=== PATIENT | female | born 1995 | race African-American/Black ===

== ENCOUNTER 2021-04-01 09:08 | Emergency (ER) | payer BC ==
[~2021-04-01] VITALS: Ht 167.6 cm; Wt 116.8 kg
--- NOTE | 2021-04-01 09:36 | PHYS DOC ---
Past History Past Medical History: Alcoholism, Anxiety, Depression, Hypertension Past Surgical History: No Surgical History Alcohol Use: Heavy Additional Alcohol Information: drinks one bottle palmason daily Adult General Chief Complaint Chief Complaint: ABDOMINAL PAIN HPI HPI Patient is a 25-year-old presenting for abdominal pain. Onset was this morning shortly after waking up. No known inciting event or trauma. Nothing known makes better or worse. Patient reports mainly epigastric pain that is generalized in nature without radiation, states it is gnawing and making her nauseous. She has suffered several episodes of nonbloody nonbilious emesis. Admits history of alcoholism, drinks at least a pint of hard liquor daily with last drink yesterday evening. Also reports she smokes marijuana, denies any change in type/strain or increased frequency. Has history of abdominal pain like this in the past but is never been diagnosed with pancreatitis or been ho spitalized. No fever, hemoptysis, history of abdominal surgeries Review of Systems Review of Systems Fourteen body systems of review of systems have been reviewed. See HPI for pertinent positives and negative responses, other lopez all other systems are negative, non-pertinent or non-contributory Allergies Allergies Allergies Coded Allergies Type Severity Reaction Last Updated Verified No Known Drug Allergies 04/01/21 No Physical Exam Physical Exam Constitutional: Well developed, well nourished, diaphoretic and appears in acute pain HENT: Normocephalic, atraumatic, diaphoretic, bilateral external ears normal, oropharynx moist, no oral exudates, nose normal. Eyes: PERRLA, EOMI, conjunctiva normal, no discharge. Neck: Normal range of motion, no tenderness, supple, no stridor. Cardiovascular: Heart rate regular, sinus rhythm, no murmurs rubs or gallops Lungs & Thorax: Bilateral breath sounds clear to auscultation Abdomen: Bowel sounds normal, soft, epigastric tenderness, no masses, no pulsatile masses. Nonsurgical abdomen, no peritoneal signs Skin: Warm, dry, no erythema, no rash. Back: No tenderness, no CVA tenderness. Extremities: No tenderness, no cyanosis, no clubbing, ROM intact, no edema. Neurologic: Alert and oriented X 3, grossly normal motor & sensory function, no focal deficits noted. Psychologic: Anxious affect, judgement normal, mood normal. Current Patient Data Vital Signs Vital Signs Date Time Temp Pulse Resp B/P (MAP) Pulse Ox O2 Delivery O2 Flow Rate FiO2 04/01/21 09:10 97.3 56 24 148/94 (112) 100 Room Air Lab Results Laboratory Tests Test 04/01/21 09:55 White Blood Count 17.3 x10^3/uL Red Blood Count 5.60 x10^6/uL Hemoglobin 14.9 g/dL Hematocrit 46.3 % Mean Corpuscular Volume 83 fL Mean Corpuscular Hemoglobin 27 pg Mean Corpuscular Hemoglobin Concent 32 g/dL Red Cell Distribution Width 14.9 % Platelet Count 297 x10^3/uL Neutrophils (%) (Auto) 71 % Lymphocytes (%) (Auto) 23 % Monocytes (%) (Auto) 4 % Eosinophils (%) (Auto) 1 % Basophils (%) (Auto) 1 % Neutrophils # (Auto) 12.3 x10^3uL Lymphocytes # (Auto) 3.9 x10^3/uL Monocytes # (Auto) 0.7 x10^3/uL Eosinophils # (Auto) 0.2 x10^3/uL Basophils # (Auto) 0.1 x10^3/uL Platelet Estimate Pending Sodium Level 141 mmol/L Potassium Level 3.5 mmol/L Chloride Level 104 mmol/L Carbon Dioxide Level 22 mmol/L Anion Gap 15 Blood Urea Nitrogen 10 mg/dL Creatinine 0.8 mg/dL Estimated GFR (Cockcroft-Gault) 105.8 BUN/Creatinine Ratio 13 Glucose Level 128 mg/dL Calcium Level 9.4 mg/dL Total Bilirubin 0.4 mg/dL Aspartate Amino Transf (AST/SGOT) 28 U/L Alanine Aminotransferase (ALT/SGPT) 43 U/L Alkaline Phosphatase 75 U/L Total Protein 8.3 g/dL Albumin 3.8 g/dL Albumin/Globulin Ratio 0.8 Lipase 59 U/L Current Medications Medications (Trade) Dose Ordered Sig/Gordon Route PRN Reason Start Time Stop Time Status Last Admin Dose Admin Sodium Chloride 1,000 ml @ 1,000 mls/hr Q1H IV 04/01/21 09:45 04/01/21 10:44 DC 04/01/21 09:45 Fentanyl Citrate (Fentanyl 2ml Vial) 75 mcg 1X ONCE IVP 04/01/21 09:45 04/01/21 09:46 DC 04/01/21 09:50 Lorazepam (Ativan Inj) 0.5 mg 1X ONCE IVP 04/01/21 09:45 04/01/21 09:46 DC 04/01/21 09:47 Iohexol (Omnipaque 300 Mg/ml) 75 ml 1X ONCE IV 04/01/21 09:45 04/01/21 09:46 DC 04/01/21 10:01 EKG EKG EKG ordered and interpreted by myself at 1026 hrs. as sinus rhythm at 52 bpm, unremarkable intervals, no axis deviation, no acute ischemic findings, no STEMI Radiology/Procedures Radiology/Procedures INDICATION: Reason: etoh abuse, epigastric pain / Spl. Instructions: / History: . COMPARISON: None. TECHNIQUE: Axial CT images obtained through the abdomen and pelvis with contrast. One or more of the following individualized dose reduction techniques were utilized for this examination: 1. Automated exposure control; 2. Adjustment of the mA and/or kV according to patient size; 3. Use of iterative reconstruction technique. FINDINGS: Abdominal aorta is not aneurysmal. No intrahepatic bile duct dilation. Liver is prominent in size. Gallbladder is d istended at time of exam. No peripancreatic fluid collection. Spleen is unremarkable. No hydronephrosis. Urinary bladder is partially distended. Fat-containing umbilical hernia. Uterus is visualized. No periappendiceal inflammatory changes. No dilated loops of bowel to suggest obstruction. Degenerative changes of the spine. This includes at L4-5 where there is a disc protrusion associated central canal stenosis. IMPRESSION: * No evidence of bowel obstruction or appendicitis. * No hydronephrosis. Electronically signed by: Angel Pang MD (04/01/2021 10:20 AM) [id number] Heart Score C/O Chest Pain: No HEART Score for Chest Pain: HEART Score for Chest Pain Response (Comments) Value History Slighlty/Non-Suspicious 0 ECG Normal 0 Age < 45 0 Risk Factors 1 or 2 Risk Factors 1 Total 1 Risk Factors: Risk Factors: DM, Current or recent (<one month) smoker, HTN, HLP, family history of CAD, obesity. Risk Scores: Risk Factors: DM, Current or recent (<one month) smoker, HTN, HLP, family hi story of CAD, obesity. Course & Med Decision Making Course & Med Decision Making Discussed with the patient all findings and diagnostic testing. I discussed most likely diagnosis of abdominal pain unspecified. Discussed pain could be due to alcohol dependence and sequelae from drinking more than usual from night prior, could be gastritis. Also disclosed this could be cannabinoid hyperemesis syndrome. Also disclosed this might be an acute presentation more concerning pathology. Patient responded to ER intervention, was asymptomatic after IV fluids, IV pain control and low-dose benzodiazepine. I reviewed need for further diagnostic work-up and discussed role of potential hospitalization; however, joint decision made given complete improvement in symptoms for discharge home with close PCP follow-up. As such, I stressed need for close outpatient follow-up to review today's ER visit. Strict return precautions were also discussed at length with good understanding by patient. Patient voiced understanding and agreement with the plan. Patient knows to come back for repeat evaluation if concerning signs or symptoms present prior to outpatient follow- up. Hemodynamically stable, ambulatory and well-appearing at time of disposition. Dragon Disclaimer Dragon Disclaimer This electronic medical record was generated, in whole or in part, using a voice recognition dictation system. Departure Departure: Impression: Primary Impression: Abdominal pain Disposition: HOME / SELF CARE / HOMELESS Condition: IMPROVED Referrals: BI EDGE MD (PCP) Patient Instructions: Abdominal Pain Additional Instructions: You have been evaluated in the Emergency Department today for abdominal pain. Your evaluation was not suggestive of any emergent condition requiring medical intervention at this time. However, some abdominal problems make take more time to appear. Therefore, it is important for you to watch for any new symptoms or worsening of your current condition. As discussed, please contact your primary care physician immediately after your departure to review ER visit today. In addition, it would be beneficial to discuss safely cutting back and hopefully stopping your alcohol and marijuana use Return to the Emergency Department if you experience worsening pain, persistent fevers greater than 100.4, recurrent vomiting, blood in vomit, blood in stool, dark tarry stool, chest pain, difficulty breathing, or any other concerning symptoms. NAKIA YARBROUGH DO Apr 01, 2021 09:36
[2021-04-01] MEDS ORDERED: IOHEXOL 300 MG/ML 75 ML VIAL. IV ONE (09:45)
[2021-04-01] MEDS ORDERED: IV NORMAL SALINE 1,000ML 1,000 ML IV SCH (09:45)
[2021-04-01 10:15] LABS: BASO # 0.1 x10^3/uL (0.0-0.2); BASO % 1 % (0-3); EOS # 0.2 x10^3/uL (0.0-0.7); EOS % 1 % (0-3); HEMATOCRIT 46.3 % (36.0-47.0); HEMOGLOBIN 14.9 g/dL (12.0-15.5); LYMPH # 3.9 x10^3/uL (1.0-4.8); LYMPH % 23 % (24-48); MEAN CORPUSCULAR HEMOGLOBIN 27 pg (25-35); MEAN CORPUSCULAR HGB CONC 32 g/dL (31-37); MEAN CORPUSCULAR VOLUME 83 fL (79-100); MONO # 0.7 x10^3/uL (0.0-1.1); MONO % 4 % (0-9); NEUT # 12.3 x10^3uL (1.8-7.7); NEUT % 71 % (31-73); PLATELET COUNT 297 x10^3/uL (140-400); RED CELL DISTRIBUTION WIDTH 14.9 % (11.5-14.5); WHITE BLOOD COUNT 17.3 x10^3/uL (4.0-11.0)
--- NOTE | 2021-04-01 10:23 | RAD ---
INDICATION: Reason: etoh abuse, epigastric pain / Spl. Instructions: / History: . COMPARISON: None. TECHNIQUE: Axial CT images obtained through the abdomen and pelvis with contrast. One or more of the following individualized dose reduction techniques were utilized for this examinat ion: 1. Automated exposure control; 2. Adjustment of the mA and/or kV according to patient size; 3 . Use of iterative reconstruction technique. FINDINGS: Abdominal aorta is not aneurysmal. No intrahepatic bile duct dilation. Liver is prominent in size. Gallbladder is distended at time of e xam. No peripancreatic fluid collection. Spleen is unremarkable. No hydronephrosis. Urinary bladder is partially distended. Fat-containing umbilical hernia. Uterus is visualized. No periappendiceal inflammatory changes. No dilated loops of bowel to suggest obstruction. Degenerative changes of the spine. This includes at L4-5 where there is a disc protrusion associated central canal stenosis. IMPRESSION: * No evidence of bowel obstruction or appendicitis. * No hydronephrosis. Electronically signed by: Angel Pang MD (04/01/2021 10:20 AM) [id number]
[2021-04-01 10:29] LABS: CALCIUM 9.4 mg/dL (8.5-10.1); CREATININE 0.8 mg/dL (0.6-1.0); GFR 105.8; POTASSIUM 3.5 mmol/L (3.5-5.1)
[2021-04-01 10:34] LABS: ALBUMIN 3.8 g/dL (3.4-5.0); ALBUMIN/GLOBULIN RATIO 0.8 (1.0-1.7); TOTAL BILIRUBIN 0.4 mg/dL (0.2-1.0); TOTAL PROTEIN 8.3 g/dL (6.4-8.2)
--- NOTE | 2021-04-01 11:04 | EKG ---
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
[2021-04-01 11:50] LABS: U PREG PATIENT NEGATIVE (NEG)
[2021-04-01 11:54] VITALS: BP 99/47
[2021-04-01 12:01] LABS: AMPHETAMINE/METHAMPHETAMINE NEG (NEG); BARBITURATES NEG (NEG); BENZODIAZEPINES NEG (NEG); CANNABINOIDS POS (NEG); COCAINE NEG (NEG); METHADONE NEG (NEG); OPIATES NEG (NEG); PHENCYCLIDINE NEG (NEG)
[2021-04-01 12:05] LABS: BACTERIA,URINE FEW /HPF (0-FEW); BILIRUBIN,URINE NEG (NEG); CLARITY,URINE HAZY; COLOR,URINE YELLOW; GLUCOSE,URINE NEG (NEG); NITRITE,URINE NEG (NEG); SQUAMOUS EPITHELIAL CELL,UR MANY /LPF; UROBILINOGEN,URINE 0.2 mg/dL (0.2 mg/dL)
[2021-04-01 13:49] LABS: % ATYL 6 % (0-0); % EOS 1 % (0-5); % LYMPHS 21 % (24-48); % MONOS 3 % (0-10); % SEGS 69 % (35-66); PLT ESTIMATE ADEQUATE (ADEQUATE)
== END 2021-04-01 11:54 | disposition home or self-care (01) ==
LOC: ER 09:08
DX: R10.13 Epigastric pain (principal); I10 Essential (primary) hypertension; F12.10 Cannabis abuse, uncomplicated; F17.210 Nicotine dependence, cigarettes, uncomplicated
CPT/HCPCS: 36415; 74177; 80053; 80307; 81001; 81025; 83690; 85007; 85025; 87086; 93005; 96361; 96374; 96375; 99285; J2060; J3010; J7030; Q9967; 87077

== ENCOUNTER 2021-11-03 23:29 | Emergency (ER) | payer BC ==
[~2021-11-03] VITALS: Ht 167.6 cm; Wt 116.8 kg
[2021-11-03 23:40] VITALS: BP 140/92
--- NOTE | 2021-11-03 23:48 | PHYS DOC ---
Past History Past Medical History: Alcoholism, Anxiety, Constipation, Depression, Hypertension Past Surgical History: No Surgical History Alcohol Use: Heavy General Adult EDM: Chief Complaint: MEDICATION REFILL HPI: HPI: ".. I ve got a fever... out of my Lexapro .. the last three days.. and under stress...." Patient is a 26 year old female who presents with request for med refill and a dose of Lexapro tonight. Patient normally on Lexapro 20 mg every night. Patient has had flu vaccination as well as COVID vaccination. Patient concerned because she has a fever. Did check earlier in the week and her rapid COVID was negative. No recent travel. No specific ill contacts. Does have a history of depression and anxiety.. Patient denies any current suicidal ideation or homicidal ideation. Has no formed plan for suicide. Patient does have a primary care physician as well as counselor who refills her medications. Patient complains of generalized myalgia, arthralgia and malaise. Pt. declines psychiatric assessment team evaluation at this time. Patient is accompanied with her mother. Review of Systems: Review of Systems: Constitutional: Complains of fever or chills Eyes: Denies change in visual acuity HENT: Denies nasal congestion or sore throat Respiratory: Complains of a nonproductive cough Cardiovascular: Denies chest pain or edema GI: Denies abdominal pain, nausea, vomiting, bloody stools or diarrhea : Denies dysuria Musculoskeletal: Complains of myalgia and arthralgia and malaise Integument: Denies rash Neurologic: Denies headache, focal weakness or sensory changes Endocrine: Denies polyuria or polydipsia Lymphatic: Denies swollen glands Psychiatric: Denies depression or anxiety Family History: Family History: Noncontributory to presentation Current Medications: Current Meds: See nursing for home meds Allergies: Allergies: Allergies Coded Allergies Type Severity Reaction Last Updated Verified No Known Drug Allergies 04/01/21 No Physical Exam: PE: Constitutional: Well developed, well nourished, moderate acute distress, non- toxic appearance. [] HENT: Normocephalic, atraumatic, bilateral external ears normal, oropharynx moist, no oral exudates, nose swollen turbinates clear rhinorrhea. Postnasal drainage. Eyes: PERRLA, EOMI, conjunctiva normal, no discharge. [] Neck: Normal range of motion, no tenderness, supple, no stridor. [] Cardiovascular:Heart rate regular rhythm, no murmur [] Lungs & Thorax: Bilateral breath sounds equal at apex with a few scattered wheezes on Auscultation [] Abdomen: Bowel sounds normal, soft, no tenderness, no masses, no pulsatile masses. Obese Skin: Warm, dry, no erythema, no rash. [] Back: No tenderness, no CVA tenderness. [] Extremities: No tenderness, no cyanosis, no clubbing, ROM intact, no edema. [] Neurologic: Alert and oriented X 3, normal motor function, normal sensory function, no focal deficits noted. [] Psychologic: Affect anxious, angry,, judgement-appears to have good insight,, mood complaints of depression but no suicidal ideation currently. EKG: EKG: [] Radiology/Procedures: Radiology/Procedures: [] Heart Score: C/O Chest Pain: N/A Risk Factors: Risk Factors: DM, Current or recent (<one month) smoker, HTN, HLP, family history of CAD, obesity. Risk Scores: Score 0 - 3: 2.5% MACE over next 6 weeks - Discharge Home Score 4 - 6: 20.3% MACE over next 6 weeks - Admit for Clinical Observation Score 7 - 10: 72.7% MACE over next 6 weeks - Early Invasive Strategies Course & Med Decision Making: Course & Med Decision Making Pertinent Labs and Imaging studies reviewed. (See chart for details) Patient push clear fluids. Patient take her Lexapro 20 mg daily. To call her physician in the morning. Currently this is not a drug we have in stock at [facility]. Patient informed of her COVID and influenza screen. Mother still practices if she has COVID and self isolate. Return if any concerns. Push fluids. Clear fluid diet. Tylenol and ibuprofen for discomfort. Return if any concerns. Viral isolation-and must wear mask covering nose and mouth and her interactions with others. Must self isolate for the next 5 days. To retest after 5 days if needed for return to work. Currently rapid influenza and COVID results are negative Impression: 1. Depression-with no current suicidal ideation or suicidal plan 2. Viral syndrome [] Dragon Disclaimer: Dragon Disclaimer: This electronic medical record was generated, in whole or in part, using a voice recognition dictation system. Departure Departure: Referrals: BI EDGE MD (PCP) Octavia Disclaimer This chart was dictated in whole or in part using Voice Recognition software in a busy, high-work load, and often noisy Emergency Department environment. It may contain unintended and wholly unrecognized errors or omissions. Dragon Disclaimer This chart was dictated in whole or in part using Voice Recognition software in a busy, high-work load, and often noisy Emergency Department environment. It may contain unintended and wholly unrecognized errors or omissions. BOONE NORIEGA MD Nov 03, 2021 23:48
[2021-11-04] MEDS ORDERED: ACETAMINOPHEN 500 MG TABLET PO ONE (01:00)
[2021-11-04 01:47] LABS: INFLUENZA A PATIENT NEGATIVE (NEGATIVE); INFLUENZA B PATIENT NEGATIVE (NEGATIVE)
[2021-11-04] MEDS ORDERED: ONDANSETRON ODT 4 MG TAB.RAPDIS PO ONE (02:00)
== END 2021-11-04 03:00 | disposition home or self-care (01) ==
LOC: ER 23:29
DX: F32.9 Major depressive disorder, single episode, unspecified (principal); Z76.0 Encounter for issue of repeat prescription; B34.9 Viral infection, unspecified; I10 Essential (primary) hypertension; Z20.822 Contact with and (suspected) exposure to COVID-19
CPT/HCPCS: 87428; 99283; Q0162

== ENCOUNTER 2022-02-10 19:19 | Emergency (ER) | payer BC ==
[~2022-02-10] VITALS: Ht 167.6 cm; Wt 116.6 kg
--- NOTE | 2022-02-10 20:02 | PHYS DOC ---
Past History Past Medical History: Alcoholism, Anxiety, Constipation, Depression, Hypertension Additional Past Medical Histor: Hip (LORRI FERRARI APRN) Past Medical History: Alcoholism (BOONE JAMA MD) Past Surgical History: No Surgical History (LORRI FERRARI APRN) Alcohol Use: Heavy (LORRI FERRARI APRN) General Adult EDM: Chief Complaint: SUICIDAL IDEATION HPI: HPI: Patient is a 26-year-old female who presents to the emergency department for suicidal ideation. When asked what her plan is patient states "everything". Her family member at bedside states that she had talked about setting the house on fire. Patient reports she follows up with therapist and saw them today. She has anxiety and depression and was prescribed Lexapro but is not taking that as directed. She denies homicidal ideation but family member at bedside reports that she is having homicidal thoughts. (LORRI FERRARI APRN) Review of Systems: Review of Systems: Constitutional: Denies fever or chills Eyes: Denies change in visual acuity HENT: Denies nasal congestion or sore throat Respiratory: Denies cough or shortness of breath Cardiovascular: Denies chest pain or edema GI: Denies abdominal pain, nausea, vomiting, bloody stools or diarrhea : Denies dysuria Musculoskeletal: Denies back pain or joint pain Integument: Denies rash Neurologic: Denies headache, focal weakness or sensory changes Endocrine: Denies polyuria or polydipsia Lymphatic: Denies swollen glands Psychiatric: See HPI (LORRI FERRARI APRN) Allergies: Allergies: Allergies Coded Allergies Type Severity Reaction Last Updated Verified No Known Drug Allergies 04/01/21 No (LORRI FERRARI APRN) Physical Exam: PE: Constitutional: Well developed, well nourished, no acute distress, non-toxic appearance. [] HENT: Normocephalic, atraumatic, bilateral external ears normal, oropharynx moist, no oral exudates, nose normal. [] Eyes: PERRL, EOMI, conjunctiva normal, no discharge. [] Neck: Normal range of motion, no stridor Cardiovascular: Normal peripheral perfusion Lungs & Thorax: Normal work of breathing, no tachypnea Abdomen: Soft and obese Skin: Warm, dry, no erythema, no rash. [] Back: No tenderness, normal range of motion Extremities: No tenderness, no cyanosis, no clubbing, ROM intact, no edema. [] Neurologic: Alert and oriented X 3, normal motor function, normal sensory function, no focal deficits noted. [] Psychologic: Affect normal, judgement normal, mood normal. [] (LORRI FERRARI APRN) Current Patient Data: Labs: Laboratory Tests Test 02/10/22 19:42 02/10/22 19:47 SARS-CoV-2 Antigen (Rapid) Negative White Blood Count 13.2 x10^3/uL Red Blood Count 5.11 x10^6/uL Hemoglobin 14.1 g/dL Hematocrit 43.5 % Mean Corpuscular Volume 85 fL Mean Corpuscular Hemoglobin 28 pg Mean Corpuscular Hemoglobin Concent 32 g/dL Red Cell Distribution Width 14.3 % Platelet Count 280 x10^3/uL Neutrophils (%) (Auto) 70 % Lymphocytes (%) (Auto) 22 % Monocytes (%) (Auto) 6 % Eosinophils (%) (Auto) 1 % Basophils (%) (Auto) 1 % Neutrophils # (Auto) 9.2 x10^3uL Lymphocytes # (Auto) 2.9 x10^3/uL Monocytes # (Auto) 0.8 x10^3/uL Eosinophils # (Auto) 0.1 x10^3/uL Basophils # (Auto) 0.1 x10^3/uL Urine Collection Type Clean catch Urine Color Yellow Urine Clarity Clear Urine pH 6.0 Urine Specific Philipp 1.015 Urine Protein Neg Urine Glucose (UA) Neg mg/dL Urine Ketones (Stick) Neg mg/dL Urine Blood Mod Urine Nitrite Neg Urine Bilirubin Neg Urine Urobilinogen Dipstick 0.2 mg/dL Urine Leukocyte Esterase Neg Urine RBC 3-5 /HPF Urine WBC 0 /HPF Urine Squamous Epithelial Cells Many /LPF Urine Bacteria 0 /HPF Sodium Level 137 mmol/L Potassium Level 4.0 mmol/L Chloride Level 102 mmol/L Carbon Dioxide Level 25 mmol/L Anion Gap 10 Blood Urea Nitrogen 8 mg/dL Creatinine 0.7 mg/dL Estimated GFR (Cockcroft-Gault) 122.4 BUN/Creatinine Ratio 11 Glucose Level 89 mg/dL Calcium Level 9.1 mg/dL Total Bilirubin 0.3 mg/dL Aspartate Amino Transf (AST/SGOT) 35 U/L Alanine Aminotransferase (ALT/SGPT) 46 U/L Alkaline Phosphatase 90 U/L Total Protein 8.3 g/dL Albumin 3.5 g/dL Albumin/Globulin Ratio 0.7 Urine Opiates Screen Neg Urine Methadone Screen Neg Urine Barbiturates Neg Urine Phencyclidine Screen Neg Urine Amphetamine/Methamphetamine Neg Urine Benzodiazepines Screen Neg Urine Cocaine Screen Neg Urine Cannabinoids Screen Pos Urine Ethyl Alcohol Pos Vital Signs: Vital Signs Date Time Temp Pulse Resp B/P (MAP) Pulse Ox O2 Delivery O2 Flow Rate FiO2 02/10/22 19:30 98.8 90 16 149/92 (111) 97 Room Air (LORRI FERRARI APRN) EKG: EKG: [] (LORRI FERRARI APRN) Radiology/Procedures: Radiology/Procedures: [] (LORRI FERRARI APRN) Heart Score: C/O Chest Pain: N/A Risk Factors: Risk Factors: DM, Current or recent (<one month) smoker, HTN, HLP, family history of CAD, obesity. Risk Scores: Score 0 - 3: 2.5% MACE over next 6 weeks - Discharge Home Score 4 - 6: 20.3% MACE over next 6 weeks - Admit for Clinical Observation Score 7 - 10: 72.7% MACE over next 6 weeks - Early Invasive Strategies (LORRI FERRARI APRN) Course & Med Decision Making: Course & Med Decision Making Pertinent Labs and Imaging studies reviewed. (See chart for details) [] Patient resents to the emergency department for suicidal ideation. Suicide precautions initiated. Blood work and urinalysis performed to medically clear patient. Patient be evaluated by member the psychiatric assessment team. 2151: Patient's noted to have mild leukocytosis which is nonspecific, CMP unremarkable. Negative rapid COVID test. Urinalysis does not show any infection. UDS is positive for marijuana and alcohol. Ethanol, Tylenol and salicylate level was ordered for patient. Is pending at this time. Patient to be evaluated by member the psychiatric assessment team and this is pending at this time. I discussed these findings and patient's case with Dr. Jama who will assume patient care at this time due to shift change. (LORRI FERRARI APRN) Course & Med Decision Making See Ata chart prior shift change for details. See PAT assessment. Pt. accepted at [facility]-- Dr. Causey, [place] Impression: 1. Hx. of Alcohol Abuse- 23 current level 2. Depression 3. Anxiety 4. Suicidal Ideation (BOONE JAMA MD) Dragon Disclaimer: Dragon Disclaimer: This electronic medical record was generated, in whole or in part, using a voice recognition dictation system. (LORRI FERRARI APRN) Departure Departure: Impression: Primary Impression: Suicidal ideation Referrals: BI EDGE MD (PCP) Dragon Disclaimer This chart was dictated in whole or in part using Voice Recognition software in a busy, high-work load, and often noisy Emergency Department environment. It may contain unintended and wholly unrecognized errors or omissions. (BOONE JAMA MD) LORRI FERRARI APRN Feb 10, 2022 20:02 BOONE JAMA MD Feb 10, 2022 22:03
[2022-02-10 20:05] LABS: BASO # 0.1 x10^3/uL (0.0-0.2); BASO % 1 % (0-3); EOS # 0.1 x10^3/uL (0.0-0.7); EOS % 1 % (0-3); HEMATOCRIT 43.5 % (36.0-47.0); HEMOGLOBIN 14.1 g/dL (12.0-15.5); LYMPH # 2.9 x10^3/uL (1.0-4.8); LYMPH % 22 % (24-48); MEAN CORPUSCULAR HEMOGLOBIN 28 pg (25-35); MEAN CORPUSCULAR HGB CONC 32 g/dL (31-37); MEAN CORPUSCULAR VOLUME 85 fL (79-100); MONO # 0.8 x10^3/uL (0.0-1.1); MONO % 6 % (0-9); NEUT # 9.2 x10^3uL (1.8-7.7); NEUT % 70 % (31-73); PLATELET COUNT 280 x10^3/uL (140-400); RED BLOOD COUNT 5.11 x10^6/uL (3.50-5.40); RED CELL DISTRIBUTION WIDTH 14.3 % (11.5-14.5); WHITE BLOOD COUNT 13.2 x10^3/uL (4.0-11.0)
[2022-02-10 20:13] LABS: CALCIUM 9.1 mg/dL (8.5-10.1); CREATININE 0.7 mg/dL (0.6-1.0); GFR 122.4
[2022-02-10 20:19] LABS: ALBUMIN 3.5 g/dL (3.4-5.0); ALBUMIN/GLOBULIN RATIO 0.7 (1.0-1.7); TOTAL BILIRUBIN 0.3 mg/dL (0.2-1.0); TOTAL PROTEIN 8.3 g/dL (6.4-8.2)
[2022-02-10 20:30] LABS: BACTERIA,URINE 0 /HPF (0-FEW); CLARITY,URINE CLEAR; COLOR,URINE YELLOW; GLUCOSE,URINE NEG (NEG); NITRITE,URINE NEG (NEG); SQUAMOUS EPITHELIAL CELL,UR MANY /LPF; UROBILINOGEN,URINE 0.2 mg/dL (0.2 mg/dL); WBC,URINE 0 /HPF (0-4)
[2022-02-10 20:34] LABS: BARBITURATES NEG (NEG); BENZODIAZEPINES NEG (NEG); CANNABINOIDS POS (NEG); COCAINE NEG (NEG); METHADONE NEG (NEG); OPIATES NEG (NEG); PHENCYCLIDINE NEG (NEG)
[2022-02-10 20:36] LABS: AMPHETAMINE/METHAMPHETAMINE NEG (NEG)
[2022-02-10 21:59] LABS: ACETAMIN < 2.0 mcg/mL (10-30); SALIC 2.3 mg/dL (2.8-20.0)
[2022-02-10] MEDS ORDERED: MVI, ADULT NO.4 WITH VIT K 10 ML, FOLIC ACID INJ 1 MG, THIAMINE INJ 100 MG in IV RINGER... IV ONE (22:45)
[2022-02-10 23:24] VITALS: BP 142/94
== END 2022-02-11 00:05 ==
LOC: ER 19:19
DX: F32.9 Major depressive disorder, single episode, unspecified (principal); F41.9 Anxiety disorder, unspecified; R45.851 Suicidal ideations; F10.20 Alcohol dependence, uncomplicated; I10 Essential (primary) hypertension; Z20.822 Contact with and (suspected) exposure to COVID-19; Y90.1 Blood alcohol level of 20-39 mg/100 ml
CPT/HCPCS: 36415; 80053; 80307; 80329; 81001; 85025; 87426; 96365; 99285; C9803; G0480; J7120; U0003

== ENCOUNTER 2022-03-05 21:02 | Emergency (ER) | payer BC ==
[~2022-03-05] VITALS: Ht 167.6 cm; Wt 115.5 kg
[~2022-03-05 21:02] MED LIST: IV NORMAL SALINE 1,000ML 1,000 ML IV ONE
--- NOTE | 2022-03-05 21:19 | PHYS DOC ---
Past History Past Medical History: Alcoholism Additional Past Medical Histor: Hip (ANN MARIE FRIAS APRN) Past Surgical History: No Surgical History (ANN MARIE FRIAS APRN) Alcohol Use: Heavy (ANN MARIE FRIAS APRN) General Adult HPI: HPI: Patient is a 26-year-old female presents with suicidal ideation. Patient states that her girlfriend broke up with her last week and she has been depressed. Patient states that she does have a plan. Patient discussed taking pills. Patient is currently transitioning from female to male and having some anxiety and depression. History of alcoholism. (ANN MARIE FRIAS APRN) Review of Systems: Review of Systems: ROS At least 10 ROS systems have been reviewed and are negative except as documented in the HPI. General: Negative except as outlined in HPI above. Skin: Negative except as outlined in HPI above. HEENT: Negative except as outlined in HPI above. Neck: Negative except as outlined in HPI above. Respiratory: Negative except as outlined in HPI above.. Cardiovascular: Negative except as outlined in HPI above. Abdomen: Negative except as outlined in HPI above. : Negative except as outlined in HPI above. Back/MSK: Negative except as outlined in HPI above. Neuro: Negative except as outlined in HPI above. Psych: Negative except as outlined in HPI above. (ANN MARIE FRIAS APRN) Allergies: Allergies: Allergies Coded Allergies Type Severity Reaction Last Updated Verified No Known Drug Allergies 04/01/21 No (ANN MARIE FRIAS APRN) Physical Exam: PE: Constitutional: Well developed, well nourished, no acute distress, tearful, depressed HENT: Normocephalic, atraumatic, bilateral external ears normal, oropharynx moist, no oral exudates, nose normal. [] Eyes: PERRLA, EOMI, conjunctiva normal, no discharge. [] Neck: Normal range of motion, no tenderness, supple, no stridor. [] Cardiovascular:Heart rate regular rhythm, no murmur [] Lungs & Thorax: Bilateral breath sounds clear to auscultation [] Abdomen: Bowel sounds normal, soft, no tenderness, no masses, no pulsatile masses. [] Skin: Warm, dry, no erythema, no rash. [] Back: No tenderness, no CVA tenderness. [] Extremities: No tenderness, no cyanosis, no clubbing, ROM intact, no edema. [] Neurologic: Alert and oriented X 3, normal motor function, normal sensory function, no focal deficits noted. [] Psychologic: Flat affect, abnormal judgment, anxious mood (ANN MARIE FRIAS APRN) EKG: EKG: Sinus rhythm. Heart rate [address] elevation or depression. [] (ANN MARIE FRIAS APRN) Radiology/Procedures: Radiology/Procedures: [] (ANN MARIE FRIAS APRN) Heart Score: C/O Chest Pain: No Risk Factors: Risk Factors: DM, Current or recent (<one month) smoker, HTN, HLP, family history of CAD, obesity. Risk Scores: Score 0 - 3: 2.5% MACE over next 6 weeks - Discharge Home Score 4 - 6: 20.3% MACE over next 6 weeks - Admit for Clinical Observation Score 7 - 10: 72.7% MACE over next 6 weeks - Early Invasive Strategies (ANN MARIE FRIAS APRN) Course & Med Decision Making: Course & Med Decision Making Pertinent Labs and Imaging studies reviewed. (See chart for details) [] 26-year-old male presents with suicidal ideation. Patient states that she currently has a plan to take pills. Work-up in ER consisted of CBC, CMP, UDS, urinalysis. PAT team was consulted. (ANN MARIE FRIAS APRN) Course & Med Decision Making Impression: 1. Suicidal ideation 2. Depression 3. Anxiety disorder 4. Bipolar See PAT report. See Keegan report. Patient discharged home on safety plan with family. (BOONE NORIEGA MD) Dragon Disclaimer: Dragon Disclaimer: This electronic medical record was generated, in whole or in part, using a voice recognition dictation system. (ANN MARIE FRIAS APRN) Departure Departure: Impression: Primary Impression: Suicidal ideation Disposition: HOME / SELF CARE / HOMELESS Condition: STABLE Referrals: BI EDGE MD (PCP) Attending Signature Attending Signature I have participated in the care of this patient and I have reviewed and agree with all pertinent clinical information above including history, exam, and recommendations. (BOONE NORIEGA MD) Dragon Disclaimer This chart was dictated in whole or in part using Voice Recognition software in a busy, high-work load, and often noisy Emergency Department environment. It may contain unintended and wholly unrecognized errors or omissions. (BOONE NORIEGA MD) ANN MARIE FRIAS APRN March 05, 2022 21:19 BOONE NORIEGA MD March 06, 2022 18:00
[2022-03-05 21:37] LABS: BASO # 0.1 x10^3/uL (0.0-0.2); BASO % 1 % (0-3); EOS # 0.1 x10^3/uL (0.0-0.7); EOS % 1 % (0-3); HEMATOCRIT 40.4 % (36.0-47.0); LYMPH # 2.6 x10^3/uL (1.0-4.8); LYMPH % 19 % (24-48); MEAN CORPUSCULAR HEMOGLOBIN 27 pg (25-35); MEAN CORPUSCULAR HGB CONC 32 g/dL (31-37); MEAN CORPUSCULAR VOLUME 85 fL (79-100); MONO # 0.8 x10^3/uL (0.0-1.1); MONO % 6 % (0-9); NEUT # 10.3 x10^3uL (1.8-7.7); NEUT % 74 % (31-73); PLATELET COUNT 285 x10^3/uL (140-400); RED BLOOD COUNT 4.74 x10^6/uL (3.50-5.40); RED CELL DISTRIBUTION WIDTH 14.1 % (11.5-14.5); WHITE BLOOD COUNT 13.9 x10^3/uL (4.0-11.0)
[2022-03-05 21:45] LABS: CALCIUM 8.6 mg/dL (8.5-10.1); CREATININE 0.9 mg/dL (0.6-1.0); GFR 91.6; POTASSIUM 3.5 mmol/L (3.5-5.1)
[2022-03-05 21:58] LABS: PREG TEST PT QUAL NEGATIVE (NEG)
[2022-03-05 23:40] VITALS: BP 134/88
--- NOTE | 2022-03-09 12:40 | EKG ---
[address] [address] Test Date: 2021-04-01 Test Time: 10:17:53 Pat Name: LAURA MONROE Department: Room: Gender: F Assisted Living Care Manager: MARZENA : 1995 Requested By: BOONE NORIEGA Order Number: [id number] Reading MD: Measurements Intervals [place] Rate: 52 P: 57 MI: 158 QRS: 34 QRSD: 90 T: 31 QT: 406 QTc: 383 Interpretive Statements SINUS RHYTHM OTHERWISE NORMAL ECG RI6.02 No previous ECG available for comparison
== END 2022-03-05 23:49 | disposition home or self-care (01) ==
LOC: ER 21:02
DX: R45.851 Suicidal ideations (principal); F41.9 Anxiety disorder, unspecified; F31.9 Bipolar disorder, unspecified
CPT/HCPCS: 80048; 84703; 85025; 93005; 99285; J7030